=== PATIENT | male | born 1940 | race Caucasian/White ===

== ENCOUNTER → 2024-05-25 12:08 | Outpatient (REF) | payer MEDICARE, SELFPAY | LOC: MRI 12:08 | PROVIDERS: ATTENDING PHYSICIAN Nurse Practitioner; FAMILY PHYSICIAN Family Medicine | DX: E27.40 Unspecified adrenocortical insufficiency (principal); Z86.001 Personal history of in-situ neoplasm of cervix uteri | CPT/HCPCS: 70553; A9575 ==